=== PATIENT | male | born 1980 | race Caucasian/White ===

== ENCOUNTER 2019-03-07 03:15 | Emergency (ER) | payer SELFPAY ==
[~2019-03-07] VITALS: Ht 175.3 cm; Wt 81.6 kg
[2019-03-07 03:18] VITALS: BP 130/80
--- NOTE | 2019-03-07 03:18 | NUR ---
PT AMBULATED TO THE LOBBY FROM THE [facility].
--- NOTE | 2019-03-07 04:07 | NUR ---
PT AMBULATED TO ER BED 5 FROM [facility]
--- NOTE | 2019-03-07 04:10 | NUR ---
PT ASSESSMENT COMPLETE. PT LAYING DOWN IN BED. BEDRAIL X1 UP. WILL CONTINUE TO MONITOR.
[2019-03-07 06:01] VITALS: BP 135/87
--- NOTE | 2019-03-07 06:02 | NUR ---
PT SEEN WITH EYES CLOSED. VISIBLE CHEST RISE AND FALL NTOED. BEDRAIL X1UP. WILL CONTINUE TO MONITOR.
--- NOTE | 2019-03-07 06:10 | NUR ---
DR. DE LOS SANTOS AT BEDSIDE EVALUTING PT.
--- NOTE | 2019-03-07 06:17 | NUR ---
Patient discharged with v/s stable. Written and verbal after care instructions given and explained. Patient verbalized understanding. Ambulatory with steady gait. All questions addressed prior to discharge. Advised to follow up with PMD. Pt provided with meal and homeless resources.
== END 2019-03-07 06:17 | disposition home or self-care (01) ==
LOC: MED 03:15
DX: M79.672 Pain in left foot (principal); M79.671 Pain in right foot; R03.0 Elevated blood-pressure reading, without diagnosis of hypertension; Z53.21 Procedure and treatment not carried out due to patient leaving prior to being seen by health care provider
CPT/HCPCS: 99283

== ENCOUNTER 2019-03-07 21:22 | Emergency (ER) | payer SELFPAY ==
[~2019-03-07] VITALS: Ht 170.2 cm; Wt 98.9 kg
[2019-03-07 21:29] VITALS: BP 100/74
--- NOTE | 2019-03-07 21:38 | NUR ---
PT AMBULATED TO LOBBY WITH STEADY GAIT
--- NOTE | 2019-03-07 22:36 | NUR ---
38 Y/O MALE C/O LOWER BACK PAIN, HEADACHE, NAUSEA. DENIES VOMITING. BOWEL SOUNDS PRESENT X 4 QUAD. PT DENIES TRAUMA. RR EVEN AND UNLABORED. AFEBRILE AT THIS TIME. RR EVEN AND UNLABORED. VSS. MEDHX: DENIES ALLERGIES: NKA
--- NOTE | 2019-03-07 22:37 | NUR ---
PT RECEIVED HOMELESS PACKET, FOOD, AND A BUS PASS UPON REQUEST.
--- NOTE | 2019-03-07 22:38 | NUR ---
Patient discharged with v/s stable. Written and verbal after care instructions given and explained. Patient alert, oriented and verbalized understanding of instructions. Ambulatory with steady gait. All questions addressed prior to discharge. ID band removed. Patient advised to follow up with PMD. Rx of AZITHROMYCIN AND NAPROSYN given. Patient educated on indication of medication including possible reaction and side effects. Opportunity to ask questions provided and answered.
[2019-03-07 22:39] VITALS: BP 100/74
== END 2019-03-07 22:38 | disposition home or self-care (01) ==
LOC: MED 21:22
DX: J40 Bronchitis, not specified as acute or chronic (principal); F15.10 Other stimulant abuse, uncomplicated
CPT/HCPCS: 99283